=== PATIENT | male | born 1960 | race Caucasian/White ===

== ENCOUNTER 2024-05-14 19:58 | Emergency (ER) | payer OTHER, SELFPAY ==
--- NOTE | ~2024-05-14 | US_ITS ---
EXAMINATION: US venous doppler LE RT DATE: 05/14/2024 22:10 INDICATION: Right lower limb pain and swelling. TECHNIQUE: Grayscale ultrasound images without and with compression and Doppler ultrasound images of the right lower extremity veins were obtained. COMPARISON: None. FINDINGS: The visualized portions of right common femoral vein, profunda (deep) femoral vein, femoral vein, pop liteal vein, peroneal veins, posterior tibial veins, and greater saphenous vein outflow are patent. T here is a 5.3 x 1.2 x 3.2 cm hypoechoic mass in right calf. There is a 4.7 x 1.7 x 1.7 cm hypoechoic mass in right calf. IMPRESSION: 1. No deep venous thrombosis. 2. Two masses in right calf, likely hematomas. Reviewed, dictated and finalized at location A.
[2024-05-14 20:07] VITALS: BP 159/92; PULSE 84; RESP 16; TEMP 36.3; O2SAT 99
[2024-05-14 20:58] VITALS: BP 145/82; PULSE 79; RESP 16; TEMP 36.6; O2SAT 97
[2024-05-14 21:40] LABS: Basophils Percent Auto 0.5 % (0.2-1.2); Eosinophils Absolute Auto 0.1 K/mm3 (0-0.3); Eosinophils Percent Auto 2.1 % (0-4.4); Hematocrit 40.8 % (42.0-52.0); Hemoglobin 13.7 g/dL (14.0-18.0); Immature Granulocyte Absolute 0.01 K/mm3 (0.00-0.031); Immature Granulocyte Percent A 0.2 % (0-0.5); Lymphocytes Absolute Auto 1.44 K/mm3 (0.9-3.2); Lymphocytes Percent Auto 25.6 % (18.3-44.2); Mean Corpuscular HGB Conc 33.6 g/dl (32-36); Mean Corpuscular Hemoglobin 29.2 pg (26-34); Monocytes Absolute Auto 0.6 K/mm3 (0.1-0.6); Monocytes Percent Auto 9.9 % (2.6-8.5); Neutrophils Absolute Auto 3.5 K/mm3 (1.3-6.7); Neutrophils Percent Auto 61.7 % (45.5-73.1); Platelet Count Result 157 k/mm3 (150-375); Red Blood Count 4.69 M/mm3 (4.6-6.20); Red Cell Distribution Width 13.3 % (11.5-14.5); White Blood Count 5.6 K/mm3 (4.5-10.0)
--- NOTE | 2024-05-14 21:40 | ED.GENADULT ---
HPI - General Adult General Chief complaint: Extremity Problem,Nontraumatic Stated complaint: leg pain, swelling Time Seen by Provider: 05/14/24 20:51 History of Present Illness HPI narrative: This is a 63-year-old male presenting with swelling and pain to his right lower extremity. Pain started several days ago. Has been getting steadily worse. Now developed a red rash in the leg. No history of cellulitis or DVT/risk factors for DVT. No chest pain difficulty breathing or fevers nausea vomiting diarrhea Related Data Home Medications Medication Instructions Recorded Confirmed albuterol sulfate 90 mcg/actuation 2 inh inhalation Q4-6H PRN Acid 11/23/23 01/03/24 aerosol inhaler (Proventil HFA) Reflux famotidine 10 mg tablet (Pepcid AC) 10 mg PO DAILY 11/23/23 01/03/24 magnesium 200 mg tablet 200 mg PO DAILY 11/23/23 01/03/24 multivitamin 1 tablet PO DAILY 11/23/23 01/03/24 budesonide 160 mcg-glycopyr 9 2 inh inhalation BID 01/03/24 01/03/24 mcg-formot 4.8 mcg/actuation HFA inhaler (Breztri Aerosphere) budesonide 160 mcg-glycopyr 9 inh inhalation 05/14/24 mcg-formot 4.8 mcg/actuation HFA inhaler (Breztri Aerosphere) Allergies Allergy/AdvReac Type Severity Reaction Status Date / Time No Known Allergies Allergy Unknown Verified 05/14/24 20:09 NKDA Allergy Mild NONE Uncoded 01/03/24 14:29 [facility] Past Medical History Medical History Hyperlipidemia Family History Family History Father Heart disease Mother Acute leukemia Social History Social History Smoking packs per day: 4 Smoking cigarettes per day: 80.0 Years smoked: 25 Smoking pack-years: 100.00 Smoking status: Former smoker Tobacco type: cigarettes Second hand tobacco smoke exposure: Yes Smoking end date: 09/11/11 Alcohol intake: former Exam Narrative: APPEARANCE: No apparent distress. Head: atraumatic. EYES: EOMI, NOSE: Atraumatic NECK: Trachea midline RESPIRATORY: No increased rate of breathing clear to auscultation CARDIOVASCULAR: RRR, ABDOMINAL: Non-distended soft nontender MUSCULOSKELETAl: No obvious deformities NEURO: Alert. Moving 4/4 extremities SKIN:: Right lower extremity is edematous with a mild red rash and warm to touch, pulses intact focal areas of tenderness the back knee and over medial half no area of significant fluctuance, no overt cellulitic changes PSYCHIATRIC: Normal affect Course Vital Signs Vital signs: Vital Signs Temperature 97.4 F L 05/14/24 20:07 Pulse Rate 84 05/14/24 20:07 Respiratory Rate 16 05/14/24 20:07 Blood Pressure 159/92 H 05/14/24 20:07 Pulse Oximetry 99 05/14/24 20:07 Oxygen Delivery Room Air 05/14/24 20:07 Temperature 98 F 05/14/24 20:58 Pulse Rate 79 05/14/24 20:58 Respiratory Rate 16 05/14/24 20:58 Blood Pressure 145/82 H 05/14/24 20:58 Pulse Oximetry 97 05/14/24 20:58 Oxygen Delivery Room Air 05/14/24 20:07 Medical Decision Making MDM Narrative Medical decision making narrative: -Course: 63-year-old male presenting with swollen right leg. DVT ultrasound negative for DVT but did show 2 fluid collections the suspicious for hematoma. There is some concern for infection so they were aspirated with return of blood. Patient will be discharged course Keflex, instructed use compression stockings given return precautions. -DDX includes but is not limited to: DVT, cellulitis -Independent interpretation of studies: Laboratory studies reviewed within normal limits Imaging reviewed -Shared decision making / Disposition: Discharge -RX Keflex mg q.i.d. x7 days Vital Signs Vital Signs: Vital Signs Temperature 97.4 F L 05/14/24 20:07 Pulse Rate 84 05/14/24 20:07 Respiratory Rate 16 05/14/24 20:07 Blood Pressure 159/92 H
[2024-05-14 21:50] LABS: Anion Gap 7 mmol/L (4-12); Blood Urea Nitrogen 20 mg/dL (9-20); Calcium 8.5 mg/dL (8.4-10.2); Carbon Dioxide 29 mmol/L (22-30); Chloride 99 mmol/L (98-107); Estimated CRCL calculation 74 ml/min; Estimated Glomerular Filt Rate > 60; Glucose 108 mg/dL (65-110); Potassium 3.6 mmol/L (3.4-5.0); Sodium 135 mmol/L (137-145)
[2024-05-14 21:58] LABS: INR 1.1
[2024-05-14 21:59] LABS: Partial Thromboplastin Time 30.9 Seconds (22.3-36.8)
[2024-05-14 23:02] VITALS: BP 137/72; PULSE 77; RESP 16; TEMP 36.6; O2SAT 98
== END 2024-05-14 23:03 | disposition home or self-care (01) ==
PROVIDERS: Emergency Provider Emergency Medicine
DX: R60.0 Localized edema (principal); M79.81 Nontraumatic hematoma of soft tissue; E78.5 Hyperlipidemia, unspecified; Z87.891 Personal history of nicotine dependence
CPT/HCPCS: 36415; 80048; 85025; 85610; 85730; 93971; 99284